=== PATIENT | female | born 1990 | race Two or more races ===

== ENCOUNTER 2024-05-29 11:06 | Emergency (ER) | payer MEDICAID, SELFPAY ==
[2024-05-29 11:15] VITALS: BP 126/64; PULSE 88; RESP 19; TEMP 37.1; O2SAT 100; BMI 26.2
--- NOTE | 2024-05-29 11:19 | XR_ITS ---
Examination: Complete OB ultrasound, less than 14 weeks, transabdominal Date and time of exam: May 29, 2024 1155 hours INDICATIONS: Lower pelvic pain cramping and vaginal bleeding onset today Technique: Obstetrical ultrasound images less than 14 weeks performed via transabdominal imaging Findings: A normal shaped single intrauterine gestation is present in the uterus. pole 5.3 cm corresponds to 11 week 6 day gestational age Cardiac motion 152 BPM Left lateral adjacent subchorionic hemorrhage 19 x 6 x 19 mm Ultrasonographic survey of visible structures unremarkable. Amniotic fluid volume appears appropriate for this estimated gestational age. Right ovary 2.9 x 2.9 x 3.0 cm arterial flow 17 mm follicular cyst Left ovary 2.7 x 1.8 x 2.9 cm arterial flow IMPRESSION: Viable intrauterine gestation 11 weeks 6 days Given the subchorionic hemorrhage, consider short-term follow-up pelvic sonography.
--- NOTE | 2024-05-29 11:24 | PD.EDADULT ---
ED General RME/HPI General Chief complaint: Vaginal Bleeding Stated complaint: VAGINAL BLEEDING AT WORK; 13WKS PREG Time Seen by Provider: 05/29/24 11:11 Arrival date/time: 05/29/24 11:06 CC: Vaginal bleeding, low center abdominal cramping HPI this is a G6, P2 with 13-week 1 day followed by [facility] with the onset of vaginal bleeding this morning. Related Data Previous Rx's ?Medication ?Instructions ?Recorded ferrous sulfate 325 mg (65 mg 325 mg PO QDAY 90 days #90 tabs 10/24/23 iron) tablet,delayed release Allergies Allergy/AdvReac Type Severity Reaction Status Date / Time fructose Allergy Severe GI UPSET Verified 05/29/24 11:08 lactose Allergy Severe GI UPSET Verified 05/29/24 11:08 trazodone Allergy Severe TROUBLE Verified 05/29/24 11:08 BREATHING bupropion AdvReac Severe HALLUCINATI Verified 05/29/24 11:08 NG [place] And Derivatives AdvReac Severe SEVERE Verified 05/29/24 11:08 ABDOMINAL PAIN POTASSIUM GLUCONATE AdvReac Severe SEVERE Uncoded 05/29/24 11:08 ABDOMINAL PAIN Meat AdvReac Intermediate GAS Uncoded 05/29/24 11:08 Review of Systems Review of Systems Narrative Review of Systems: GEN: No fever, no chills, no weight loss EYES: No discharge, no visual changes, no pain HEENT: No ear pain, no congestion, no sore throat PULM: No shortness of breath, no cough, no congestion CV: No chest pain, no dyspnea on exertion, no palpitations GI: No nausea, no vomiting, no diarrhea, no pain, no constipation : No frequency, no urgency, no dysuria Reproductive: Vaginal bleeding MUSC/SKEL: No joint pain, no back pain SKIN: No rash PSYCH: No hallucinations, no depression HEME/LYMPH: No easy bleeding or bruising tendencies NEURO: No weakness, no headache Past Medical History Past Medical History NEUROLOGIC: Positive Neurological Disorders and Seizures (13 years ago) CARDIAC: Negative Cardiac Disorders or Congestive Heart Failure RESPIRATORY: Positive Asthma and Pneumonia (in childhood); Negative Chronic Obstructive Pulmonary Disease (COPD) GASTROINTESTINAL: Positive Gastrointestinal Disorders and Gastroesophageal Reflux Disease GENITOURINARY: Negative Genitourinary Disorders or Renal Disease REPRODUCTIVE: Positive Gonorrhea (Treated 2020), Previous Pregnancies (x5 previous pregnancies) and Syphilis (Treated 2020); Negative Genital Herpes or Pelvic Inflammatory Disease MUSCULOSKELETAL: Negative Musculoskeletal Disorders ENDOCRINE: Negative Endocrine Disorders, Diabetes Mellitus Type 1 or Diabetes Mellitus Type 2 HEMATOLOGIC: Positive Anemia; Negative Blood Disorders or Sickle Cell Disease PSYCHO/SOCIAL: Positive Recreational Drug Use, Bipolar Disorder, Depression, Anxiety and Post Traumatic Stress Disorder; Negative Schizophrenia, Depression or Eating Disorder OTHER HISTORY: Positive Hospitalization and Cancer (Gastrointestinal Cancer in 2002 in Remission); Negative Autoimmune Disease, Blood Transfusions, Blood Transfusion Reaction or Anesthesia Reactions Family History FAMILY HISTORY: Positive Family Cancer (BOTH FATHER AND MOTHER SIDE); Negative Family Psychiatric Problems, Family Respiratory Disorders, Family Cardiac Disorders (MOTHER HAS A STENT IN HER HEART), Family Gastrointestinal Problems (MOTHER TYPE 2 DIABETIC, GRANDMOTHER DIABETIC), Family Surgery or Family Anesthesia Reaction Social History SMOKING STATUS: Never smoker SECOND HAND EXPOSURE: No SUBSTANCE USE: methamphetamine ED Exam Narrative Physical exam: [General: Anxious but not in any acute distress Head normocephalic HEENT: Within acceptable limits Neck is supple nontender Chest equal chest rise nontender to palpation Respiratory: Clear to auscultation no wheezes crackles or rubs CV: Rate rhythm is regular no murmurs rubs or clicks Abdomen is distended secondary to body habitus soft nontender no masses positive bowel sounds all 4 quadrants Back: No CVA tenderness no spinous process tenderness from cervical spine thoracic and lumbar spine Skin: Intact no petechiae rash induration ulceration or crepitus Extremities: Moving all extremity against resistance cap refill less than 2 seconds neurosensory intact Neuro: Awake alert oriented x3 Glascow coma 15 no focal deficits] Course Quality Measures none Orders Category Date Time Status US OB <= 14 weeks fetus Stat Exams 05/29/24 11:19 Completed ABO/RH Type Stat Lab 05/29/24 11:29 Completed Beta HCG,Quantitative Stat Lab 05/29/24 11:29 Received CBC Stat Lab 05/29/24 11:29 Completed Urinalysis Stat Lab 05/29/24 11:20 Ordered Vital Signs Vital signs: Vital Signs Temperature 98.7 F 05/29/24 11:15 Pulse Rate 88 05/29/24 11:15 Respiratory Rate 19 05/29/24 11:15 Blood Pressure 126/64 05/29/24 11:15 Pulse Oximetry (%) 100 05/29/24 11:15 Oxygen Delivery Method Room Air 05/29/24 11:15 [facility] Patient data External records reviewed:: [facility] previous records Clinical information provided by:: patient Social determinants that could affect healthcare access:: none Patient has the following chronic illnesses:: None How is presenting disease/condition affected by chronic disease/condition?: uneffected by Evaluation data The following diagnostics were reviewed and interpreted by me:: lab results and radiology exam(s) Lab and/or radiology exams considered but not ordered:: Ultrasound shows a small subchorionic bleed otherwise a single viable IUP at 11 weeks 3 days CBC showed no acute leukocytosis anemia thrombocytopenia CMP shows no acute electrolyte imbalance renal Ramirez transaminitis or T. bili elevation ABO Rh is a positive Interpretation Summary: Patient's case discussed with Dr. Vann as this patient can follow-up in 1-2 takes for repeat ultrasound. Patient advised if there is significant worsening in bleeding or large amount of clots to return the emergency room for reevaluation. Medications Medications considered but not ordered:: None Medication administrations:: None Consultations Consultation(s) initiated? (list below): No Diagnosis Differential Diagnosis ED Complaint MDM: SAB ectopic miscarriage Most likely diagnosis given after review of the tests above:: Subchorionic bleed single IUP Admission Indicated Admission indicated?: not indicated Explain why admission is indicated or not indicated:: Stable for outpatient follow-up Admission Request Was there a request for admission?: No Disposition Plan Disposition Plan: Discharge Discharge Attestation Discharge Attestation: The patient and all family members were given an opportunity to ask questions and understood the discharge instructions. Discharge instructions specifically effects, indications for sooner follow up or return to the emergency department, and the expected course of current diagnosis. Patient condition: Stable Medical Decision Making Differential Diagnosis Differential Diagnosis: SAB ectopic miscarriage Lab Data 05/29/24 11:29 Labs: Lab Results 05/29/24 Range/Units 11:29 WBC 10.0 (3.6-11.0) Thou/mm3 RBC 4.88 (4.00-5.20) Miln/mm3 Hgb 14.0 (12.0-16.0) g/dL Hct 40.6 (36.0-46.0) % MCV 83 (80-100) fL MCH 28.7 (25.0-35.0) pg MCHC 34.5 (31.0-37.0) g/dl RDW Std Deviation 38.9 (36.4-46.3) fL Plt Count 235 (140-440) Thou/mm3 Neut % (Auto) 69 (37-80) % Lymph % (Auto) 22 (10-50) % [place] % (Auto) 5 (0-12) % Eos % (Auto) 3 (0-10) % Baso % (Auto) 0 (0-2.5) % Neut # (Auto) 6.9 (1.8-7.7) Thou/mm3 Lymph # (Auto) 2.2 (1.0-4.8) Thou/mm3 [place] # (Auto) 0.5 (0.0-0.8) Thou/mm3 Eos # (Auto) 0.3 (0.0-0.5) Thou/mm3 Baso # (Auto) 0.0 (0.0-0.2) Thou/mm3 Immature Gran # (Auto) 0.03 H (0.00-0.00) Thou/mm3 Absolute Nucleated RBC 0.00 (0.00-0.00) Thou/mm3 Immature Gran % 0 (0-0) % Nucleated RBC % 0 (0) /100 WBC Blood Type A Positive Blood Bank Wristband ID Yes Discharge Plan Plan Patient Disposition: HOME (Self Care) Patient condition on transfer: Stable Prescriptions/Referrals Prescriptions/Med Rec: No Action ferrous sulfate 325 mg (65 mg iron) tablet,delayed release (DR/EC) 325 mg PO QDAY 90 Days Qty: 90 2RF Referrals: Charbel Cheema MD [Primary Care Provider] - In 1 week Problem List Clinical Impression: Complication affecting intrauterine , Subchorionic bleed Patient/Caregiver Discharge Instructions Other Activity Instructions:: Contacted [facility] OB to schedule an ultrasound in the next week or 2, if there is worsening of symptoms prior to that return the emergency room for reevaluation. Education Materials: Bleeding During Early Print Language: Sinhala Stand Alone Forms: Elaine Award Info., Patient Portal Info Letter, Work/School Release PA/LABORER [employer]OL[employer] Supervising Physician PA/LABORER [employer] Supervising Physician: Maxwell Wong ENP
[2024-05-29 11:40] LABS: Basophils % (Auto) 0 % (0-2.5); Eosinophils # (Auto) 0.3 Thou/mm3 (0.0-0.5); Eosinophils % (Auto) 3 % (0-10); Hematocrit 40.6 % (36.0-46.0); Immature Granulocytes % (Auto) 0 % (0-0); Immature Granulocytes Auto 0.03 Thou/mm3 (0.00-0.00); Lymphocytes # (Auto) 2.2 Thou/mm3 (1.0-4.8); Lymphocytes % (Auto) 22 % (10-50); Mean Corpuscular HGB Conc 34.5 g/dl (31.0-37.0); Mean Corpuscular Hemoglobin 28.7 pg (25.0-35.0); Mean Corpuscular Volume 83 fL (80-100); Monocytes # (Auto) 0.5 Thou/mm3 (0.0-0.8); Monocytes % (Auto) 5 % (0-12); Neutrophils # (Auto) 6.9 Thou/mm3 (1.8-7.7); Neutrophils % (Auto) 69 % (37-80); Nucleated Red Blood Cell % 0 /100 WBC (0); Platelet Count 235 Thou/mm3 (140-440); RDW Standard Deviation 38.9 fL (36.4-46.3); Red Blood Count 4.88 Miln/mm3 (4.00-5.20)
[2024-05-29 13:05] LABS: Beta HCG,Quantitative 53367 mIU/mL (<5.0)
[2024-05-29 13:25] LABS: Collection Type, Urine Clean Catch
[2024-05-29 13:32] LABS: Bilirubin,Urine Negative (Negative); Blood,Urine Negative (Negative); Clarity,Urine Clear (Clear/Hazy); Color,Urine Lt-Yellow (Lt Yel-Yel); Glucose, Urine Negative (Negative); Hyaline Casts,Urine < 1 /hpf (0-1); Ketones,Urine Negative (Negative); Leukocyte Esterase,Urine Negative (Negative); Nitrite,Urine Negative (Negative); Protein,Urine Negative (Neg - Trace); RBC,Urine 1 /hpf (0-3); Specific Gravity,Urine 1.018 (1.001-1.035); Squamous Epithelial Cell,Urine 1 /hpf (0-5); Urobilinogen,Urine Negative mg/dL (0.0-1.0); WBC,Urine 2 /hpf (0-5)
== END 2024-05-29 13:32 | disposition home or self-care (01) ==
PROVIDERS: Registered Nurse General Practice; Emergency Provider Emergency Medicine; PCP Family Medicine
DX: O20.8 Other hemorrhage in early pregnancy (principal); Z3A.11 11 weeks gestation of pregnancy
CPT/HCPCS: 36415; 76801; 81001; 84702; 85025; 86900; 86901; 99284

== ENCOUNTER 2024-10-17 14:25 | Observation (INO) | payer MEDICAID, SELFPAY ==
[2024-10-17 14:39] VITALS: BP 95/57; PULSE 107
[2024-10-17 15:02] VITALS: BP 95/57; PULSE 104; RESP 16; RESP 98; TEMP 36.6
[2024-10-17 15:03] VITALS: PULSE 108; O2SAT 97
[2024-10-17 15:04] LABS: Swb Mxed in Solvent 1 min? Yes
[2024-10-17 15:05] LABS: ROM Swab Mixed By: WORMR; Rupture of Fetal Membranes Negative (Negative)
[2024-10-17 15:08] VITALS: PULSE 108; O2SAT 98
[2024-10-17 15:12] LABS: ROM Kit Lot # 57807112
[2024-10-17 15:13] VITALS: PULSE 107; O2SAT 98
[2024-10-17 15:18] VITALS: PULSE 110; O2SAT 100
== END 2024-10-17 15:30 | disposition home or self-care (01) ==
PROVIDERS: Admitting Provider Student in an Organized Health Care Education/Training Program; Visit Provider Student in an Organized Health Care Education/Training Program
DX: Z34.83 Encounter for supervision of other normal pregnancy, third trimester (principal); Z3A.32 32 weeks gestation of pregnancy
CPT/HCPCS: 59899; 84112

== ENCOUNTER 2024-12-11 05:26 | Inpatient (IN) | payer MEDICAID, SELFPAY ==
[2024-12-11] VITALS (28 sets, daily range): BP systolic 0–129; BP diastolic 0–81; PULSE 79–110; RESP 12–20; TEMP 36.3–36.8; O2SAT 97–100; BMI 29.4
[2024-12-11] MEDS: RINGERS LACTATED 1000 ML 1,000 ML 100 ML IV (06:00)
[2024-12-11 06:41] LABS: Collection Type, Urine Clean Catch
[2024-12-11 06:45] LABS: Basophils # (Auto) 0.1 Thou/mm3 (0.0-0.2); Basophils % (Auto) 1 % (0-2.5); Eosinophils # (Auto) 0.3 Thou/mm3 (0.0-0.5); Eosinophils % (Auto) 3 % (0-10); Hematocrit 34.8 % (36.0-46.0); Hemoglobin 12.8 g/dL (12.0-16.0); Immature Granulocytes % (Auto) 2 % (0-0); Immature Granulocytes Auto 0.24 Thou/mm3 (0.00-0.00); Lymphocytes # (Auto) 2.9 Thou/mm3 (1.0-4.8); Lymphocytes % (Auto) 27 % (10-50); Mean Corpuscular HGB Conc 36.8 g/dl (31.0-37.0); Mean Corpuscular Hemoglobin 30.7 pg (25.0-35.0); Mean Corpuscular Volume 84 fL (80-100); Monocytes # (Auto) 0.9 Thou/mm3 (0.0-0.8); Monocytes % (Auto) 8 % (0-12); Neutrophils # (Auto) 6.4 Thou/mm3 (1.8-7.7); Neutrophils % (Auto) 60 % (37-80); Nucleated Red Blood Cell % 0 /100 WBC (0); Platelet Count 193 Thou/mm3 (140-440); Red Blood Count 4.17 Miln/mm3 (4.00-5.20); White Blood Count 10.7 Thou/mm3 (3.6-11.0)
[2024-12-11 06:51] LABS: Bilirubin,Urine Negative (Negative); Blood,Urine Negative (Negative); Budding Yeast,Urine Present; Clarity,Urine Turbid (Clear/Hazy); Color,Urine Lt-Yellow (Lt Yel-Yel); Glucose, Urine Negative (Negative); Ketones,Urine Trace (Negative); Leukocyte Esterase,Urine Negative (Negative); Nitrite,Urine Negative (Negative); PH,Urine 6.5 (5.0-7.0); Protein,Urine Negative (Neg - Trace); RBC,Urine 5 /hpf (0-3); Specific Gravity,Urine 1.021 (1.001-1.035); Squamous Epithelial Cell,Urine 3 /hpf (0-5); Urobilinogen,Urine Negative mg/dL (0.0-1.0); WBC,Urine 2 /hpf (0-5)
[2024-12-11 07:07] LABS: Alanine Aminotransferase 29 U/L (10-49); Albumin, Serum 3.9 gm/dL (3.5-5.0); Albumin/Globulin Ratio 1.8 (1.2-2.2); Alkaline Phosphatase 720 U/L (46-116); Anion Gap 11 (7-16); BUN/Creatinine Ratio 17 Ratio (12-20); Bilirubin,Total 0.4 mg/dL (0.3-1.2); Blood Urea Nitrogen 12 mg/dL (9-23); Calcium 9.9 mg/dL (8.3-10.6); Carbon Dioxide 18.8 mMol/L (20.0-31.0); Chloride 109 mMol/L (98-107); Creatinine (Component) 0.7 mg/dL (0.6-1.3); Estimated Creatinine Clearance 122.7 mL/min (>60); Globulin 2.2 gm/dL (2.3-3.5); Glucose 83 mg/dL (74-106); Osmolality,Calculated 276 (275-295); Potassium 3.7 mMol/L (3.4-5.1); Sodium 139 mMol/L (136-145); Total Protein 6.1 gm/dL (5.7-8.2); Uric Acid 5.6 mg/dL (3.1-7.8); eGFR > 60 See Note
[2024-12-11] MEDS: ceFAZolin/D5W 2 GM IV 2 GM/100 ML BAG IV (07:16)
[2024-12-11] MEDS: CITRIC ACID/SODIUM CITR 15 ML UDC (BICITRA) 30 ML PO (07:16)
[2024-12-11] MEDS: FAMOTIDINE INJ 10 MG/ML VIAL 2 ML 20 MG IV (07:17)
[2024-12-11 07:25] LABS: Syphilis Reactive (Nonreactive)
[2024-12-11 07:26] LABS: MHATP/TP-PA* See Sep Rpt
[2024-12-11 07:42] LABS: Fibrinogen 441 mg/dL (175-375); Prothrombin Time 10.6 Seconds (9.0-12.2)
--- NOTE | 2024-12-11 07:43 | PD.LDHP ---
Documentation for date of: 12/11/24 OB Labor/Induct. HPI History of Present Illness : 5 Date of last menstrual period: 03/12/24 TAYLOR: 12/12/24 Gestational age based on last menstrual period: 39 History of present illness: 34-year-old 6 para 2-0-3-2 at 39 weeks and 6 days admitted for repeat low-transverse . Patient has a history of spontaneous x 3 and one of them had blood transfusion. This has been complicated by positive antibody status anti E and anti-C, however unity testing has been done and negative. Patient also has a history of gonorrhea and syphilis in 2020 and received treatment. Current intake labs show serofast status. Patient had an abnormal 1 hour GTT however was noncompliant or have the 3-hour done. However the HbA1c was 5. Previous was done at 40 weeks and patient had a vaginal delivery before that. Patient complained of severe headache which was not responding to Tylenol at home. Vitals are stable however preeclampsia lab were done with normal History of Present Dating criteria: LMP confirmed by 1st trimester US Abnormal ultrasound findings: Anatomy scan within normal limits Placenta anterior no previa Labs Labs: Negative: RPR, HIV, Chlamydia and Gonorrhea and Unknown: Hepatitis B, Rubella Titre, Herpes Type 1, Herpes Type 2 and Covid-19 Meds Home Medications and Allergies Allergies Allergy/AdvReac Type Severity Reaction Status Date / Time fructose Allergy Severe GI UPSET Verified 10/17/24 14:58 lactose Allergy Severe GI UPSET Verified 10/17/24 14:58 lorazepam (From Ativan) Allergy Severe Hallucinati Verified 10/17/24 14:58 ng bupropion AdvReac Severe HALLUCINATI Verified 10/17/24 14:58 NG POTASSIUM GLUCONATE AdvReac Severe SEVERE Uncoded 10/17/24 14:58 ABDOMINAL PAIN OB Exam Physical Exam Vital signs: Temp Pulse Resp BP Pulse Ox O2 Del Method 97.7 F 95 18 0/0 L 100 Room Air 12/11/24 05:43 12/11/24 05:43 12/11/24 05:43 12/11/24 06:04 12/11/24 07:06 12/11/24 05:43 Constitutional Constitutional: no acute distress Routine HEENT Exam Head: Present normocephalic and atraumatic Eye: Present EOMI and PERRL ENT: Present mucous membranes moist Routine Neck Exam Neck: Present supple and trachea midline Routine Cardiovascular Exam Cardiovascular: Present RRR Routine Abdominal Exam Abdominal: Present soft and normoactive bowel sounds Detailed Labor and Delivery Exam Dilation (cm): Closed Routine Extremities Exam Extremities: Present full ROM Routine Skin Exam Skin: Present intact, dry and warm Routine Neurological Exam Neurological: Present alert, oriented X3 and CN II-XII intact Routine Psychiatric Exam Psychiatric: Present normal affect and normal thought process OB Results Labs 12/11/24 06:16 12/11/24 06:16 Labs: Short CBC 12/11/24 Range/Units 06:16 WBC 10.7 (3.6-11.0) Thou/mm3 Hgb 12.8 (12.0-16.0) g/dL Hct 34.8 L (36.0-46.0) % Plt Count 193 (140-440) Thou/mm3 BMP 12/11/24 06:16 Sodium 139 Potassium 3.7 Chloride 109 H Carbon Dioxide 18.8 L BUN 12 Creatinine 0.7 Glucose 83 Calcium 9.9 Liver Function 12/11/24 Range/Units 06:16 Total Bilirubin 0.4 (0.3-1.2) mg/dL ALT 29 (10-49) U/L Alkaline Phosphatase 720 H (46-116) U/L Albumin 3.9 (3.5-5.0) gm/dL Urine 12/11/24 Range/Units 06:00 Urine Color Lt-Yellow (Lt Yel-Yel) Urine Clarity Turbid A (Clear/Hazy) Urine pH 6.5 (5.0-7.0) Ur Specific [place] 1.021 (1.001-1.035) Urine Protein Negative (Neg - Trace) Urine Glucose (UA) Negative (Negative) Impressions Impression: 34-year-old 6 para 2-0-3-2 at 39 weeks and 6 days dated by first trimester ultrasound is admitted for repeat low-transverse Hemoglobin 12.3 Positive antibody status complicating however unity testing is negative History of syphilis treated in 2020, serofast status History of 3 spontaneous blood transfusion in 1 Anatomy scan within normal limits, anterior placenta GTT abnormal 1 hour noncompliant 3-hour OB Assessment & Plan Additional Plan Additional Plan Comment: Boarded for repeat low-transverse Antibiotic prophylaxis DVT prophylaxis
[2024-12-11] MEDS: ONDANSETRON INJ 2 MG/ML INJ 2 ML 4 MG IVP (09:37)
[2024-12-11] MEDS: KETOROLAC INJ 30 MG/ML VIAL IVP (09:59)
[2024-12-11] MEDS: OXYTOCIN in NS 20 units 20 UNIT/1,000 ML BAG 125 UNIT IV ×2 (11:01→19:45)
--- NOTE | 2024-12-11 12:07 | PC.LAC ---
mom had asked for nipple shield on my first visit with her. she stated that she had used it with her first baby for 5 months. mom stated that she would like to have it for a back up in case she has difficulty with the latch. issued a 24 mm nipple shield to mom
[2024-12-11 13:39] LABS: Basophils # (Auto) 0.1 Thou/mm3 (0.0-0.2); Basophils % (Auto) 0 % (0-2.5); Eosinophils # (Auto) 0.1 Thou/mm3 (0.0-0.5); Eosinophils % (Auto) 1 % (0-10); Hematocrit 32.2 % (36.0-46.0); Hemoglobin 11.8 g/dL (12.0-16.0); Immature Granulocytes % (Auto) 1 % (0-0); Immature Granulocytes Auto 0.15 Thou/mm3 (0.00-0.00); Lymphocytes # (Auto) 1.8 Thou/mm3 (1.0-4.8); Lymphocytes % (Auto) 10 % (10-50); Mean Corpuscular HGB Conc 36.6 g/dl (31.0-37.0); Mean Corpuscular Hemoglobin 30.7 pg (25.0-35.0); Mean Corpuscular Volume 84 fL (80-100); Monocytes # (Auto) 0.9 Thou/mm3 (0.0-0.8); Monocytes % (Auto) 5 % (0-12); Neutrophils % (Auto) 83 % (37-80); Nucleated Red Blood Cell % 0 /100 WBC (0); Platelet Count 183 Thou/mm3 (140-440); RDW Standard Deviation 43.9 fL (36.4-46.3); Red Blood Count 3.84 Miln/mm3 (4.00-5.20); White Blood Count 16.9 Thou/mm3 (3.6-11.0)
[2024-12-11] MEDS: DiphenhydrAMINE 25 MG CAPSULE PO (16:36)
--- NOTE | 2024-12-11 17:10 | ESOP_ITS ---
Operative Note - EMBEDDED FIRMWARE ENGINEER Procedure Date of procedure: 12/11/24 Procedure Performed: repeat low transverse Csection Indication: previous Csection x1 Pre-Op diagnosis: previous Csection x1 Post-Op diagnosis: same Anesthesia type: Spinal Procedure description: Informed consent was obtained and the patient was taken to the operating room.? Identity was confirmed by double identifiers and she was placed on the operating table.The abdomen and perineum were prepped in the usual sterile fashion and a Nielson catheter was placed to continuous drainage.? Sterile drapes were applied.??A Pfannenstiel skin incision was made with a scalpel and carried to the subcutaneous fat up to the rectus fascia.? The rectus fascia was incised on either side of the midline and the incisions were extended bilaterally.? The fascia was gently dissected off the ventral surface of the rectus muscle both superiorly and inferiorly. extensive adhesiolysis was done between musle , peritoneum. bladder flap carefully created, then hysterotomy incision made and extended bluntly with finger. placenta edge was Rupture of membranes revealed clear fluid. The baby was found vertex presentation and was delivered via vertex. Nuchal cord x 1, seen the umbilical cord , was doubly clamped, divided and the infant was handed over to the waiting team. The placenta delivered by controlled cord traction . The interior of the uterus was now thorougly cleaned of all blood and debris and membranes.?The? hysterotomy was closed using 0 vicryl suture in double layers. Once the repair was completed the hysterotomy was inspected, was noted to be adequately hemostatic. Then the rectus fascia was repaired using Vicryl 0 in a running fashion.? The subcutaneous layer was now, approximated with 3-0 vicryl in double layers.? All bleeding points were cauterized using the Bovie.?The skin was closed using 4-0 Monocryl in a subcuticular fashion.? The skin was cleaned and a sterile dressing was applied. The patient was now undraped, the abdomen and back were thoroughly cleaned and she was now transferred to the recovery room in a stable Estimated blood loss (ml): 400 Surgical staff Operation Date: 12/11/24 07:45 Case Staff [employer]: Cliff Hess RNvisual merchandise manager: Christopher Singh Diagnosis Problem List Completed Was Problem List Reviewed/Reconciled?: Yes
--- NOTE | 2024-12-11 17:18 | OBDSUM_ITS ---
Data (Soriano) Data : 6 Delivery Data (Soriano) Labor Data ROM date: 12/11/24 ROM time: 08:02 Amniotic membrane rupture type: Artificial Amniotic fluid description: Clear Delivery Data [place] delivery date: 12/11/24 delivery time: 08:03 Gestational age (weeks): 39 Gestational age (days): 6 Placenta delivery date: 12/11/24 Placenta delivery time: 08:03 Delivered by: Silvia Cabrera Delivery nurse: Zay Sterling RN [place] nurse: Cirilo Jennings RN Receiving Distribution Station Operator at delivery: No Support person(s) at delivery: FOB Delivery Method Delivery method: Low Transverse Presentation: Vertex Anesthesia Type Anesthesia Type: Spinal Anesthesia type: Spinal Placenta Placenta delivery description: Manual Removal Cord blood sent to lab: Yes cord blood collection: Cord Blood Type Episiotomy Episiotomy description: None EBL Estimated blood loss (ml): 300 Umbilical Cord cord description: 3 Vessels Data (Soriano) Data [place]'s gender: Female Identification band number: [id number] weight (gms): 3690 g Weight (pounds): 8 lbs and 2.2 ozs length: 20 cm 1 minute: 9 5 minutes: 9 10 minutes: 10
[2024-12-11] MEDS: ACETAMINOPHEN IVPB 1,000 MG/100 ML VIAL 250 MG IV (19:45)
[2024-12-12 00:26] VITALS: BP 90/58; PULSE 86; RESP 18; TEMP 36.8; O2SAT 97
[2024-12-12 04:30] VITALS: BP 94/63; PULSE 91; RESP 18; TEMP 37.2; O2SAT 98
[2024-12-12] MEDS: ACETAMINOPHEN IVPB 1,000 MG/100 ML VIAL 250 MG IV (04:47)
[2024-12-12] MEDS: RINGERS LACTATED 1000 ML 1,000 ML 100 ML IV (04:47)
[2024-12-12 06:43] LABS: Amphetamine/Metham Scrn,Ur OB Negative (Negative); Benzoylecgonine Screen, Ur OB Negative (Negative); Opiate Screen,Urine OB Negative (Negative); THC Screen,Urine OB Negative (Negative)
[2024-12-12 07:35] VITALS: BP 104/66; PULSE 88; RESP 16; TEMP 36.6; O2SAT 98
--- NOTE | 2024-12-12 08:45 | PC.LAC ---
Mom stated went well overnight, stated that she did end up having to use the nipple shield and that baby tolerated this well. Mom did state that she knew how to use one as she used it with first child till they were 5 months old. Mom stated that she did not have any pain when baby latched and that she heard baby swallowing.
[2024-12-12] MEDS: HYDROcodone/APAP 5/325 TABLET 2 TAB PO ×2 (09:49→17:55)
--- NOTE | 2024-12-12 10:12 | ESPR_ITS ---
Subjective Subjective Interval history: Patient is doing well patient denies any nausea vomiting, fever patient denies any pain and has not been ambulating, passing gas, voiding without any problems Exam Vital Signs Temp Pulse Resp BP Pulse Ox O2 Del Method 98.9 F 91 18 94/63 98 Room Air 12/12/24 04:30 12/12/24 04:30 12/12/24 04:30 12/12/24 04:30 12/12/24 04:30 12/12/24 04:30 Constitutional Constitutional: no acute distress Routine HEENT Exam Head: Present normocephalic and atraumatic Eye: Present EOMI and PERRL ENT: Present mucous membranes moist Routine Neck Exam Neck: Present supple and trachea midline Routine Respiratory Exam Respiratory: Present chest non-tender, lungs clear, normal breath sounds and no resp distress Routine Cardiovascular Exam Cardiovascular: Present RRR Routine Abdominal Exam Abdominal: Present soft and normoactive bowel sounds Routine Extremities Exam Extremities: Present full ROM Routine Skin Exam Skin: Present intact, dry and warm Routine Neurological Exam Neurological: Present alert, oriented X3 and CN II-XII intact Routine Psychiatric Exam Psychiatric: Present normal affect and normal thought process Objective Labs 12/11/24 12:49 12/11/24 06:16 Labs: Laboratory Results - last 24 hr 12/11/24 12/11/24 12/11/24 06:16 07:07 07:07 WBC RBC Hgb Hct MCV MCH MCHC RDW Std Deviation Plt Count Neut % (Auto) Lymph % (Auto) [place] % (Auto) Eos % (Auto) Baso % (Auto) Neut # (Auto) Lymph # (Auto) [place] # (Auto) Eos # (Auto) Baso # (Auto) Immature Gran # (Auto) Absolute Nucleated RBC Immature Gran % Nucleated RBC % Urine Opiates Screen U Amphetamin/Meth Scrn U Cocaine Metab Screen U Marijuana (THC) Screen T.pallidum Ab (MHA) See Sep Rpt Blood Type A Positive Antibody Screen POSITIVE Antibody Identification Anti-E Anti-K Blood Bank Wristband ID 12/11/24 12/11/24 12/12/24 07:07 12:49 04:45 WBC 16.9 H D RBC 3.84 L Hgb 11.8 L Hct 32.2 L MCV 84 MCH 30.7 MCHC 36.6 RDW Std Deviation 43.9 Plt Count 183 Neut % (Auto) 83 H Lymph % (Auto) 10 [place] % (Auto) 5 Eos % (Auto) 1 Baso % (Auto) 0 Neut # (Auto) 14.0 H Lymph # (Auto) 1.8 [place] # (Auto) 0.9 H Eos # (Auto) 0.1 Baso # (Auto) 0.1 Immature Gran # (Auto) 0.15 H Absolute Nucleated RBC 0.00 Immature Gran % 1 H Nucleated RBC % 0 Urine Opiates Screen Negative U Amphetamin/Meth Scrn Negative U Cocaine Metab Screen Negative U Marijuana (THC) Screen Negative T.pallidum Ab (MHA) Blood Type Antibody Screen Antibody Identification Anti-c Blood Bank Wristband ID Yes Assessment & Plan Assessment Comment Assessment comment: 34-year-old para 2 status post repeat low-transverse . Postop day 1 Vital signs stable Meeting all postop milestones Plan Comment Plan Comment: Continue postop care Anticipate discharge tomorrow Time Spent With Patient Time: Total time spent is greater than 50% in coordination of care (as documented) at patient's floor/unit and/or counseling patient:
--- NOTE | 2024-12-12 13:49 | PC.SS ---
SS conducted bedside contact with the patient to address nursing referral indicating patient had history of anxiety and bipolar disorder. ?SS introduced self and role.? SS asked for permission to speak in front of family member. Patient agreed. SS discussed with patient basis of referral.? Patient denied having any current feelings of anxiety, depression or bipolar disorder. Patient states she is in 2020 she had history of substance abuse with meth. During this time, she experience symptoms of anxiety and depression. She also states she thought she had bipolar disorder but was never fully diagnosed. She contributes this to her drug use. Patient has been clean and sober since 2020. ?Patient, currently, has no impairments. Patient has no current thoughts of harming herself or others.? No other history of documented mental health. Maverick ADORNO, resides in the home. This is patient?s 3rd child. Other children?s? ages are 14 years old and 13 months. , baby girl, was born today via . care was completed with Dr. Cabrera.? Patient was consistent with . Patient plans on breast feeding and bottle feeding. Patient is aligned with [facility]. Patient does not possess [place] assistance or Food stamps. Patient denies history of domestic violence. Patient verbalized she did have CPS involvement in the past but it has been closed. Patient has all resources to include: car seat, infant clothing and infant supplies.? pharmacy services director provided resources to include:? Parent[employer], Warm Line and community numbers. SS discussed in further detail emotional support and answered all questions appropriately. Patient verbalized she has support from her and his family. ?No further intervention required at this time, manager social media will be available to address any further concerns. SS updated bedside nurse.
[2024-12-12 15:45] VITALS: BP 102/69; PULSE 94; RESP 17; TEMP 36.5; O2SAT 97
[2024-12-12] MEDS: IBUPROFEN TAB 400 MG TABLET 800 MG PO ×2 (15:57→23:54)
[2024-12-12 19:30] VITALS: BP 119/80; PULSE 79; RESP 16; TEMP 36.6; O2SAT 98
[2024-12-12] MEDS: Milk Of Magnesia Susp 30 ML UDC PO (23:55)
[2024-12-13] MEDS: HYDROcodone/APAP 5/325 TABLET 2 TAB PO ×3 (04:10→17:17)
[2024-12-13 08:30] VITALS: BP 110/75; PULSE 80; RESP 17; TEMP 36.7; O2SAT 98
[2024-12-13 12:00] VITALS: BP 115/80; PULSE 85; RESP 18; TEMP 36.4; O2SAT 98
--- NOTE | 2024-12-13 12:25 | PD.LDDS ---
DS: Providers Provider Date of admission: 12/11/24 05:26 Primary care physician: Janet Vasquez CNM Admitting Provider: Silvia Cabrera MD Attending Provider on Admission: Silvia Cabrera MD Consults: 12/11/24 07:42 Referral Routine Comment: Attending Provider on DC: Silvia Cabrera MD Discharging Provider: Silvia Cabrera MD DS: Diagnosis Problem List Completed Was Problem List Reviewed/Reconciled?: Yes Summary/Hosp Course Brief History: 34-year-old 6 para 3, s/p RLTCS @ at 39 weeks and 6 days has been doing well. met all PO milestone s including ambulation , passing gas , tolerating diet Peripartum Data Delivery Method: Low Transverse Episiotomy Description: None Procedures: Procedures Operation Date: 12/11/24 07:45 Actual Procedure Side Surgeon p in OB Silvia Cabrera MD Status at Discharge Cognitive/behavioral status at discharge: stable Time Spent with Patient Time attestation: Total time spent providing and/or coordinating discharge services: Exam Vital Signs Temp Pulse Resp BP Pulse Ox O2 Del Method 97.8 F 79 16 119/80 98 Room Air 12/12/24 19:30 12/12/24 19:30 12/12/24 19:30 12/12/24 19:30 12/12/24 19:30 12/12/24 19:30 Constitutional Constitutional: no acute distress Routine HEENT Exam Head: Present normocephalic and atraumatic Eye: Present EOMI and PERRL ENT: Present mucous membranes moist Routine Neck Exam Neck: Present supple and trachea midline Routine Respiratory Exam Respiratory: Present chest non-tender, lungs clear, normal breath sounds and no resp distress Routine Cardiovascular Exam Cardiovascular: Present RRR Routine Abdominal Exam Abdominal: Present soft and normoactive bowel sounds Routine Extremities Exam Extremities: Present full ROM Routine Skin Exam Skin: Present intact, dry and warm Routine Neurological Exam Neurological: Present alert, oriented X3 and CN II-XII intact Routine Psychiatric Exam Psychiatric: Present normal affect and normal thought process Discharge Plan Plan Patient Disposition: HOME (Self Care) Prescriptions/Referrals Prescriptions/Med Rec: New acetaminophen-codeine 300-60 mg tablet 1 tab PO Q8H PRN (Reason: pain) Qty: 10 0RF ibuprofen 800 mg tablet 800 mg PO TID Qty: 30 0RF No Action ferrous sulfate 325 mg (65 mg iron) tablet,delayed release (DR/EC) 325 mg PO QDAY 90 Days Qty: 90 2RF Referrals: Janet Vasquez CNM [Primary Care Provider] - Patient/Caregiver Discharge Instructions Education Materials: C Section Dc Print Language: Luxembourgish Stand Alone Forms: Elaine Award Info., Patient Portal Info Letter Discharge Order Discharge Orders: Discharge (Routine); Ordered 12/13/24 Ordered By: Silvia Cabrera Planned Discharge Date 12/13/24
[2024-12-13] MEDS: IBUPROFEN TAB 400 MG TABLET 800 MG PO (15:27)
[2024-12-13 16:10] VITALS: BP 112/78; PULSE 81; RESP 17; TEMP 36.6; O2SAT 98
== END 2024-12-13 17:40 | disposition home or self-care (01) | DRG 540 ==
LOC: S4SX 05:37 → S4NX 08:03
PROVIDERS: Admitting Provider Student in an Organized Health Care Education/Training Program; PCP Nurse Practitioner Women's Health; Visit Provider Student in an Organized Health Care Education/Training Program
PROC: 10D00Z1 Extraction of Products of Conception, Low, Open Approach (ICD-10-PCS; CPT 59514; principal; 2024-12-11 07:30)
DX: O34.211 Maternal care for low transverse scar from previous cesarean delivery (principal); Z37.0 Single live birth; Z3A.39 39 weeks gestation of pregnancy; O69.81X0 Labor and delivery complicated by cord around neck, without compression, not applicable or unspecified; O26.23 Pregnancy care for patient with recurrent pregnancy loss, third trimester; Z91.199 Patient's noncompliance with other medical treatment and regimen due to unspecified reason
CPT/HCPCS: 36415; 59409; 80053; 80307; 81001; 84550; 85025; 85384; 85610; 85730; 86780; 86850; 86870; 86900; 86901; 94762; A4314; A4649; J0131; J0689; J1885; J2250; J2274; J2371; J2405; J2590; J2704; J3490; J7120; A9270; J2270

== ENCOUNTER 2024-12-14 21:46 | Inpatient (IN) | payer MEDICAID, SELFPAY ==
[2024-12-14 21:50] VITALS: BMI 27.6
[2024-12-14 22:00] VITALS: BP 104/77; PULSE 136; RESP 20; TEMP 39.2; O2SAT 98
--- NOTE | 2024-12-14 22:01 | PC.NURSE ---
NOT A STROKE ALERT PER DR. COSBY.
--- NOTE | 2024-12-14 22:03 | XR_ITS ---
Examination: AP chest single view TECHNIQUE: AP portable upright chest single view Date and time: December 14, 2024 10:21 PM Comparison April 04, 2014 INDICATIONS: Chest pain and fever today FINDINGS: Normal heart size Lungs are clear. Osseous structures are intact IMPRESSION: No active disease
[2024-12-14 22:07] VITALS: BP 150/75; PULSE 121; RESP 15; O2SAT 99
--- NOTE | 2024-12-14 22:08 | XR_ITS ---
Examination: CT abdomen with intravenous contrast CT pelvis with intravenous contrast 2-D coronal reconstructions 2-D sagittal reconstructions Date and time of exam:December 15, [address] chest abdomen pelvis January 11, 2019 INDICATIONS: this week, sepsis alert, fever unknown origin. CTDI: vol (mGy) 14 DLP: (mGycm) 782 Technique: Multiple axial sections of the abdomen and pelvis have been obtained. 64 slice high-resolution scanner used. 3 mm axial sections have been obtained, post intravenous injection of 60 cc of Isovue 370 2-D sagittal, coronal reconstructions obtained. Low dose protocols were performed. One or more of the following dose reduction techniques were used; automated exposure control, adjustment of the mA and/or KV according to patient size, use of iterative reconstruction technique. Findings: No focal liver or splenic lesions No gallstones No pancreatic mass Minimal bilateral hydronephrosis Normal appendix No bowel obstruction enlarged uterus with thickened heterogeneous endometrium Thickening in the anterior pelvic wall 5.6 cm transverse dimension 1.1 cm AP dimension Minimal thickening of the anterior urinary bladder wall IMPRESSION: uterus with thickened heterogeneous endometrium, consider retained products of conception, recommend transvaginal pelvic sonography follow-up Complex echogenic fluid collection in the anterior pelvic wall 5.6 cm in transverse dimension 1.1 cm AP dimension, differential would include abscess, hematoma, advise follow-up
[2024-12-14 22:14] VITALS: PULSE 123
--- NOTE | 2024-12-14 22:23 | XR_ITS ---
Examination: CT brain head without contrast. 2-D sagittal coronal reconstructions Date and time of exam:December 15, 2024 0043 hours Comparison October 30, 2011 INDICATIONS: Onset headaches blurred vision today, history seizures CTDI: vol (mGy):48 DLP: (mGycm):948 Technique: Multiple CT axial sections of the brain have been obtained, 5 mm slice thickness. Contrast has not been administered. 2-D sagittal, coronal reconstructions have been obtained Low dose protocols were performed. One or more of the following dose reduction techniques were used; automated exposure control, adjustment of the mA and/or KV according to patient size, use of iterative reconstruction technique. Findings: No significant ventricular enlargement. Intra-axial or extra-axial hemorrhage density is not seen. No mass effect or midline shift Basal cisterns are not remarkable. Fourth ventricle is midline. Cranial vault intact. Impression: Negative for acute hemorrhage, mass effect or midline shift Advise clinical correlation and follow up accordingly
[2024-12-14 22:26] VITALS: TEMP 39.2
[2024-12-14 22:26] LABS: Lactate (Lactic Acid) 2.9 mMol/L (0.4-2.0)
[2024-12-14] MEDS: ACETAMINOPHEN 500 MG TABLET 1000 MG PO (22:26)
[2024-12-14] MEDS: PIPER/TAZO 3.375 GM PREMIX 3.375 GM/50 ML BAG IV (22:26)
[2024-12-14] MEDS: SODIUM CHLORIDE 0.9% 1000 ML 1,000 ML 999 ML IV (22:26)
[2024-12-14 22:41] LABS: Collection Type, Urine Clean Catch
[2024-12-14 22:44] LABS: INR 0.9 (0.9-1.3); Partial Thromboplastin Time 26.8 Seconds (22.0-36.0); Prothrombin Time 10.4 Seconds (9.0-12.2)
[2024-12-14 22:45] LABS: B-Type Natriuretic Peptide 71 pg/mL (0-100)
[2024-12-14 22:50] LABS: Bilirubin,Urine Negative (Negative); Blood,Urine 1+ (Negative); Clarity,Urine Clear (Clear/Hazy); Color,Urine Lt-Yellow (Lt Yel-Yel); Glucose, Urine Negative (Negative); Ketones,Urine Negative (Negative); Leukocyte Esterase,Urine Negative (Negative); Nitrite,Urine Negative (Negative); PH,Urine 6.5 (5.0-7.0); Protein,Urine Negative (Neg - Trace); RBC,Urine 5 /hpf (0-3); Specific Gravity,Urine 1.012 (1.001-1.035); Squamous Epithelial Cell,Urine 1 /hpf (0-5); Urobilinogen,Urine Negative mg/dL (0.0-1.0); WBC,Urine 1 /hpf (0-5)
[2024-12-14 22:52] LABS: Alanine Aminotransferase 25 U/L (10-49); Albumin, Serum 3.9 gm/dL (3.5-5.0); Albumin/Globulin Ratio 1.7 (1.2-2.2); Alkaline Phosphatase 384 U/L (46-116); Anion Gap 12 (7-16); Aspartate Amino Transferase 14 U/L (0-34); BUN/Creatinine Ratio 11 Ratio (12-20); Bilirubin,Total 0.3 mg/dL (0.3-1.2); Blood Urea Nitrogen 11 mg/dL (9-23); Calcium 10.2 mg/dL (8.3-10.6); Calcium (Corrected) 10.3 mg/dL (8.5-10.1); Carbon Dioxide 22.2 mMol/L (20.0-31.0); Chloride 106 mMol/L (98-107); Estimated Creatinine Clearance 89.3 mL/min (>60); Globulin 2.3 gm/dL (2.3-3.5); Glucose 123 mg/dL (74-106); Lipase 31 U/L (12-53); Magnesium 1.6 mg/dL (1.6-2.6); Osmolality,Calculated 279 (275-295); Potassium 3.6 mMol/L (3.4-5.1); Procalcitonin 0.08 ng/ml (0.0-0.49); Sodium 140 mMol/L (136-145); Total Protein 6.2 gm/dL (5.7-8.2); Troponin I < 0.002 ng/mL (0.0-0.045); eGFR > 60 See Note
[2024-12-14 23:00] VITALS: BP 116/71; PULSE 106; RESP 13; O2SAT 100
[2024-12-14 23:04] VITALS: TEMP 38.2
[2024-12-14 23:18] LABS: HCG Qualitative,Urine Positive
[2024-12-14 23:25] LABS: Basophils % (Auto) 0 % (0-2.5); Eosinophils # (Auto) 0.1 Thou/mm3 (0.0-0.5); Eosinophils % (Auto) 1 % (0-10); Hematocrit 35.4 % (36.0-46.0); Hemoglobin 12.6 g/dL (12.0-16.0); Immature Granulocytes % (Auto) 1 % (0-0); Immature Granulocytes Auto 0.08 Thou/mm3 (0.00-0.00); Lymphocytes # (Auto) 0.6 Thou/mm3 (1.0-4.8); Lymphocytes % (Auto) 8 % (10-50); Mean Corpuscular HGB Conc 35.6 g/dl (31.0-37.0); Mean Corpuscular Volume 87 fL (80-100); Monocytes # (Auto) 0.4 Thou/mm3 (0.0-0.8); Monocytes % (Auto) 5 % (0-12); Neutrophils # (Auto) 6.8 Thou/mm3 (1.8-7.7); Neutrophils % (Auto) 86 % (37-80); Nucleated Red Blood Cell % 0 /100 WBC (0); Platelet Count 195 Thou/mm3 (140-440); RDW Standard Deviation 46.2 fL (36.4-46.3); Red Blood Count 4.07 Miln/mm3 (4.00-5.20); White Blood Count 7.9 Thou/mm3 (3.6-11.0)
[2024-12-15] VITALS (22 sets, daily range): BP systolic 108–124; BP diastolic 67–78; PULSE 79–110; RESP 11–99; TEMP 36.1–38; O2SAT 95–100; BMI 27.6
[2024-12-15 01:23] LABS: Reflex Lactate? Y
[2024-12-15 01:41] LABS: Lactic Acid, 3 HR 1.4 mMol/L (0.4-2.0)
[2024-12-15] MEDS: HYDROcodone/APAP 5/325 TABLET 1 TAB PO (01:44)
--- NOTE | 2024-12-15 01:51 | EDNOTE_ITS ---
ED Fever RME/HPI General Chief Complaint: Fever Stated Complaint: FEVER, BLURRY VISION FOR AN HOUR Time Seen by Provider: 12/14/24 22:02 Arrival date/time: 12/14/24 21:46 RME / HPI RME / HPI Narrative: DR ALMARAZ MAIN ED EVALUATION: 34 y/o female with recent SHx of and Hx of recreational drug use presents to ED c/o fever, headache and eye pain. Patient feels unwell following her 3 days ago. Patient denies vomiting, or any other associated symptoms or aggravating factors. No modifying factors, no radiation, no migration. No pain reported overall. Related Data Previous Rx's ?Medication ?Instructions ?Recorded ferrous sulfate 325 mg (65 mg 325 mg PO QDAY 90 days # 90 tabs 10/24/23 iron) tablet,delayed release acetaminophen 300 mg-codeine 15 mg 1 tab PO Q12H PRN p ain #14 tabs 12/13/24 tablet acetaminophen 300 mg-codeine 60 mg 1 tab PO Q8H PRN pa in #10 tabs 12/13/24 tablet ibuprofen 800 mg tablet 800 mg PO Q8H PRN pain #30 t abs 12/13/24 ibuprofen 800 mg tablet 800 mg PO TID #30 tabs 12/13 Allergies Allergy/AdvReac Type Severity Reaction Status Date / Time fructose Allergy Severe GI UPSET Verified 12/14/24 21:50 lactose Allergy Severe GI UPSET Verified 12/14/24 21:50 lorazepam (From Ativan) Allergy Severe Hallucinati Verified 12/14/24 21:50 ng egg Allergy Cramping Verified 12/14/24 21:50 of the Muscles bupropion AdvReac Severe HALLUCINATI Verified 12/14/24 21:50 NG Review of Systems Review of Systems Systems Reviewed: All systems reviewed, normal except as documented Past Medical History Past Medical History NEUROLOGIC: Positive Neurological Disorders and Seizures RESPIRATORY: Positive Pneumonia GASTROINTESTINAL: Positive Gastrointestinal Disorders and Gastroesophageal Reflux Disease REPRODUCTIVE: Positive Gonorrhea, Previous Pregnancies and Syphilis HEMATOLOGIC: Positive Anemia PSYCHO/SOCIAL: Positive Recreational Drug Use, Bipolar Disorder, Depression, Anxiety and Post Traumatic Stress Disorder OTHER HISTORY: Positive Hospitalization, Blood Transfusions, Blood Transfusion Reaction (not able to do atigen testing about 5 years ago) and Cancer Family History FAMILY HISTORY: Positive Family Cancer Surgical History SURGICAL: Positive Section Social History SMOKING STATUS: Former smoker SUBSTANCE USE: methamphetamine Physical Exam Narrative Physical exam: GENERAL APPEARANCE: alert and oriented x 4, well-developed, well-nourished, no acute distress VITALS: All vitals were reviewed and the pulse ox is 97% on room air, which is normal according to my interpretation. HEENT: Normocephalic, atraumatic; pupils equal, round, reactive to light; EOMI; mucous membranes pink, moist; oropharynx clear NECK: Supple LUNGS: CTABL; no wheezes, no rales, no rhonchi HEART: Regular rate, regular rhythm; normal S1, S2; no murmurs ABDOMEN: non distended; normal BS; soft, no tenderness, no guarding, no rebound; no masses, no organomegaly, no hernia BACK: no CVA tenderness EXTREMITIES: atraumatic; no edema NEUROLOGIC: awake; alert and oriented x4; cranial nerves II-XII grossly intact; no focal sensory or motor deficits PSYCHIATRIC: appropriate mood and affect SKIN: increased warmth, dry, normal color; no rashes Course Course Course Narrative: CXR is ordered for determining the etiology of chest pain. Quality Measures none Orders Category Date Time Status Bedside COVID-19 Antigen Test NOW Care 12/15/24 00:26 Active COVID-19 Screening Questionnaire NOW Care 12/15/24 00:17 Active COVID-19 Screening Questionnaire NOW Care 12/15/24 05:[address] Screening NOW Care 12/14/24 22:08 Active Day Care Aide NOW Care 12/14/24 22:03 Active Decision to Admit X1 Care 12/15/24 05:20 Active EKG (ED ONLY) *Do not use* NOW Care 12/14/24 22:03 Completed Insert IV NOW Care 12/14/24 22:[address] abdomen pelvis w con Stat Exams 12/14/24 22:[address] head/brain wo con Stat Exams 12/14/24 22:23 Taken EKG (ED Only) Stat Exams 12/14/24 22:03 Ordered XR chest 1V portable Stat Exams 12/14/24 22:03 Completed B-Type Natriuretic Peptide Stat Lab 12/14/24 22:13 Completed Blood Culture (Lab) Stat Lab 12/14/24 22:16 Received CBC Stat Lab 12/14/24 22:13 Completed Comprehensive Metabolic Panel Stat Lab 12/14/24 22:13 Completed HCG Qualitative,Urine Stat Lab 12/14/24 22:36 Completed Lactate (Lactic Acid) Stat Lab 12/14/24 22:13 Completed Lactic Acid, 3 HR Stat Lab 12/15/24 01:32 Completed Lipase Stat Lab 12/14/24 22:13 Completed Magnesium Stat Lab 12/14/24 22:13 Completed Partial Thromboplastin Time Stat Lab 12/14/24 22:13 Completed Procalcitonin Stat Lab 12/14/24 22:13 Completed Prothrombin Time with INR Stat Lab 12/14/24 22:13 Completed Troponin I Stat Lab 12/14/24 22:13 Completed Urinalysis Stat Lab 12/14/24 22:36 Completed Urine Culture Stat Lab 12/14/24 22:36 Received Acetaminophen Tab [Tylenol ES Tab] Med 12/14/24 22:10 Discontinued 1,000 mg PO X1 ONE HYDROcodone*/APAP 5/325 [[place] 5/325] Med 12/15/24 01:38 Discontinued 1 tab PO X1 ONE Piper/Tazo 3.375 gm Premix [Zosyn] Med 12/14/24 22:07 Discontinued 3.375 gm in 50 ml IV X1 Piper/Tazo 3.375 gm Premix [Zosyn] Med 12/15/24 05:14 Active 3.375 gm in 50 ml IV X1 Sodium Chloride 0.9% 1000 ml [Ns] 1,000 ml Med 12/14/24 22:03 Discontinued IV 999 mls/hr Vital Signs Vital signs: Vital Signs Temperature 102.6 F H 12/14/24 22:00 Pulse Rate 136 H 12/14/24 22:00 Respiratory Rate 20 12/14/24 22:00 Blood Pressure 104/77 12/14/24 22:00 Pulse Oximetry (%) 98 12/14/24 22:00 Oxygen Delivery Method Room Air 12/14/24 22:00 Fever MDM Narrative MDM Narrative:: Scribe Attestation: I, Tasha Betancourt, am scribing for and in the presence of Dr. Almaraz. Provider Notation: Although this document has been carefully reviewed, there may still be some phonetic and other typographical errors.? These errors are purely grammatical due to imperfections in the software program and should not be construed in any way to? compromise the substance of the patient's medical care during this visit. Patient data External records reviewed:: [facility] previous records (Reviewed prior ED records from 05/29/24. Patient was seen for Complication affecting intrauterine .) Clinical information provided by:: patient Social determinants that could affect healthcare access:: substance use (Methamphetamine) Patient has the following chronic illnesses:: Seizures, Gastroesophageal Reflux Disease, Gonorrhea, Syphilis, Anemia, Recreational Drug Use, Bipolar Disorder, Depression, Anxiety and Post Traumatic Stress Disorder How is presenting disease/condition affected by chronic disease/condition?: exacerbated by Evaluation data The following diagnostics were reviewed and interpreted by me:: lab results, radiology exam(s) and EKG tracing(s) Lab and/or radiology exams considered but not ordered:: None Interpretation Summary: RADIOLOGY Chest X-Ray: Patient: CHAYO HUERTA Med. Record#: [id number] Birthdate: 1990 Age/Sex: 34 / F Location: [facility] Attending Dr: Ordering Physician: Monica Almaraz MD Date of Service: 12/14/24 Procedure(s): XR chest 1V portable Accession Number(s): [id number] cc: Jose Enrique Fields MD; Monica Almaraz MD~ Examination: AP chest single view TECHNIQUE: AP portable upright chest single view Date and time: December 14, 2024 10:21 PM Comparison April 04, 2014 INDICATIONS: Chest pain and fever today FINDINGS: Normal heart size Lungs are clear. Osseous structures are intact IMPRESSION: No active disease Dictated By: Jose Enrique Fields MD Signed By: <Electronically signed by Jose Enrique Fields MD in OV> 12/14/[address]: Patient Name: CHAYO HUERTA : 1990 Accession No: [id number] Gender: F Location: ER Type Of Study: CT Head w/o contrast Physician: UNKNOWN UNKNOWN Image Count: [id number] Date of Exam: 12/15/2024 12:43 AM ET Requisition Time: 12/15/2024 04:18 AM ET Date of Report: 12/15/2024 05:02 AM ET Clinical History: sepsis Lead Security Officer: Agree / Disagree Change in Patient Care: Yes / No If a significant discrepancy is found between the preliminary and final interpretations of this study, please fax back this form to [phone] with a copy of the official report so that appropriate action may be taken. If you would like to discuss the findings with the radiologist, please call us on [phone], [phone]. CONFIDENTIALITY STATEMENT This transmission is confidential and is intended to be a privileged communication. It is intended only for the use of the addressee. Access to this message by anyone else is unauthorized. If you are not the intended recipient, any disclosure, distribution or any action taken, or omitted to be taken in reliance on it is prohibited and may be unlawful. If you received this communication in error, please notify us so that return of this document to us can be arranged. This report has been generated using [employer] ([email or web address]) Prelim Report CT scan of the head without intravenous contrast (axial sections with sagittal and coronal reformats). December 15, 2024 at 0043 hours Clinical history: Sepsis Comparison: No prior study is available for comparison. Findings: No evidence of intracranial hemorrhage, mass effect or midline shift. The ventricles and CSF spaces are unremarkable. The calvarium is unremarkable. The mastoid air cells and the visualized paranasal sinuses are clear. Impression: No evidence of intracranial hemorrhage, mass effect or midline shift. Abdomen/Pelvis CT: Patient Name: CHAYO HUERTA : 1990 Accession No: [id number] Gender: F Location: ER Type Of Study: CT Abdomen & Pelvis w/ Contrast Physician: UNKNOWN UNKNOWN Image Count: [id number] Date of Exam: 12/15/2024 12:46 AM ET Requisition Time: 12/15/2024 04:16 AM ET Date of Report: 12/15/2024 05:04 AM ET Clinical History: sepsis Lead Security Officer: Agree / Disagree Change in Patient Care: Yes / No If a significant discrepancy is found between the preliminary and final interpretations of this study, please fax back this form to [phone] with a copy of the official report so that appropriate action may be taken. If you would like to discuss the findings with the radiologist, please call us on [phone], [phone]. CONFIDENTIALITY STATEMENT This transmission is confidential and is intended to be a privileged communication. It is intended only for the use of the addressee. Access to this message by anyone else is unauthorized. If you are not the intended recipient, any disclosure, distribution or any action taken, or omitted to be taken in reliance on it is prohibited and may be unlawful. If you received this communication in error, please notify us so that return of this document to us can be arranged. This report has been generated using [employer] ([email or web address]) Prelim Report CT scan of the abdomen and pelvis with intravenous contrast (axial sections with sagittal and coronal reformats) December 15, 2024 0046 hours Clinical History: Sepsis Comparison: None available at the time of this report. Findings: The lung bases are clear. The gallbladder, pancreas, spleen, kidneys, and adrenals are unremarkable. Hepatomegaly. No evidence of bowel obstruction. The appendix is within normal limits. There is no mesenteric or retroperitoneal adenopathy. The urinary bladder is unremarkable. There is no free fluid or free air. The osseous structures are unremarkable. A large heterogeneous uterus. Air within the endometrial stripe. Heterogeneous thickened endometrium. Postsurgical changes in the anterior abdominal wall. Collection deep to the anterior abdominal wall soft tissues (axial image 177 of 251) measuring 1.1 x 5.6 cm. Impression: 1. Probable endometritis. 2. Collection deep to the anterior abdominal wall soft tissues (axial image 177 of 251), likely abscess. 3. Hepatomegaly. Medications / Prescriptions Medications or Prescriptions considered but not ordered:: None Medication administrations:: Medication Administration History Piperacillin/Tazobactam/Dextrose (Zosyn) 3.375 gm in 50 mls @ 100 mls/hr IV X1 ONE Stop: 12/15/24 05:43 Last Admin: 12/15/24 05:21 Dose: 100 mls/hr Documented By: BD Discontinued Medications Acetaminophen (Acetaminophen 500 Mg Tablet) 1,000 mg PO X1 ONE Stop: 12/14/24 22:11 Last Admin: 12/14/24 22:26 Dose: 1,000 mg Documented By: BD Hydrocodone Bitart/Acetaminophen (Hydrocodone/Apap 5/325 Tablet) 1 tab PO X1 ON E Stop: 12/15/24 01:39 Last Admin: 12/15/24 01:44 Dose: 1 tab Documented By: BD Sodium Chloride (Ns) 1,000 mls @ 999 mls/hr IV .Q1H1M ONE Stop: 12/14/24 23:03 Last Infusion: 12/14/24 23:04 Dose: Infused Documented By: Admin: 12/14/24 22:26 Dose: 999 mls/hr Documented By: BD Piperacillin/Tazobactam/Dextrose (Zosyn) 3.375 gm in 50 mls @ 100 mls/hr IV X1 ONE Stop: 12/14/24 22:36 Last Infusion: 12/14/24 22:57 Dose: Infused Documented By: Admin: 12/14/24 22:26 Dose: 100 mls/hr Documented By: BD See above if any. Consultations Consultation(s) initiated? (list below): Yes Consultation #1 (Physician, Specialty, Details): Discussed with Dr. Qureshi for admission. Reviewed the patient?s HPI, PMHx, lab and/or radiology results. Discussed treatment plan. Will consult an admission to the hospitalist. Time: 05:20 Diagnosis Fever Differential Diagnosis: cellulitis, fever of unknown origin, community acquired pneumonia, pyelonephritis, viral infection and sepsis Most likely diagnosis given after review of the tests above:: Endometritis, Abdominal abscess, Surgical complication Admission Indicated Admission indicated?: indicated Explain why admission is indicated or not indicated:: Endometritis, Abdominal abscess, Surgical complication Admission Request Was there a request for admission?: Yes Admission Attestation Admission request attestation: Discussed case with [] from Hospitalist service regarding admission. Discussed patients ED course, exam findings, labs, and radiology results. The Hospitalist [agrees,declines] to accept the patient for admission. Disposition Plan Disposition Plan: Admit Discharge Plan Prescriptions/Referrals Prescriptions/Med Rec: No Action acetaminophen-codeine 300-60 mg tablet 1 tab PO Q8H PRN (Reason: pain) Qty: 10 0RF ibuprofen 800 mg tablet 800 mg PO TID Qty: 30 0RF acetaminophen-codeine 300-15 mg tablet 1 tab PO Q12H PRN (Reason: pain) Qty: 14 0RF ibuprofen 800 mg tablet 800 mg PO Q8H PRN (Reason: pain) Qty: 30 0RF ferrous sulfate 325 mg (65 mg iron) tablet,delayed release (DR/EC) 325 mg PO QDAY 90 Days Qty: 90 2RF Referrals: Charbel Cheema MD [Primary Care Provider] - In 1 week Problem List Clinical Impression: Endometritis, Abdominal abscess, Surgical complication Patient/Caregiver Discharge Instructions Print Language: Sinhala
[2024-12-15] MEDS: PIPER/TAZO 3.375 GM PREMIX 3.375 GM/50 ML BAG IV ×3 (05:21→21:50)
--- NOTE | 2024-12-15 06:01 | PC.NURSE ---
CALLED PT HAS ZOSYN FOR 0600 PT JUST COMPLETED ONE DOES ADVISED NOT TO GIVE 0600 DOSE.
[2024-12-15] MEDS: DEXTROSE 5%-0.45% NS 1,000 ML 125 ML IV ×2 (06:09→15:02)
--- NOTE | 2024-12-15 06:25 | PD.GYNHP ---
Documentation for date of: 12/15/24 CERTIFIED SURGICAL TECHNICIAN - HPI History of Present Illness History of present illness: H and P dictated on STAT line #9 in [place] [id number] Meds Home Medications and Allergies Allergies Allergy/AdvReac Type Severity Reaction Status Date / Time fructose Allergy Severe GI UPSET Verified 12/14/24 21:50 lactose Allergy Severe GI UPSET Verified 12/14/24 21:50 lorazepam (From Ativan) Allergy Severe Hallucinati Verified 12/14/24 21:50 ng egg Allergy Cramping Verified 12/14/24 21:50 of the Muscles bupropion AdvReac Severe HALLUCINATI Verified 12/14/24 21:50 NG Exam - CERTIFIED SURGICAL TECHNICIAN Vital Signs Temp Pulse Resp BP Pulse Ox O2 Del Method 98.9 F 84 16 124/76 99 Room Air 12/15/24 06:00 12/15/24 06:00 12/15/24 06:00 12/15/24 06:00 12/15/24 06:00 12/15/24 06:00 CERTIFIED SURGICAL TECHNICIAN - Results Labs 12/14/24 22:13 12/14/24 22:13 Labs: Short CBC 12/14/24 Range/Units 22:13 WBC 7.9 D (3.6-11.0) Thou/mm3 Hgb 12.6 (12.0-16.0) g/dL Hct 35.4 L (36.0-46.0) % Plt Count 195 (140-440) Thou/mm3 BMP 12/14/24 22:13 Sodium 140 Potassium 3.6 Chloride 106 Carbon Dioxide 22.2 BUN 11 Creatinine 1.0 Glucose 123 H Calcium 10.2 Cardiac Enzymes 12/14/24 Range/Units 22:13 Troponin I < 0.002 (0.0-0.045) ng/mL Liver Function 12/14/24 Range/Units 22:13 Total Bilirubin 0.3 (0.3-1.2) mg/dL AST 14 (0-34) U/L ALT 25 (10-49) U/L Alkaline Phosphatase 384 H (46-116) U/L Albumin 3.9 (3.5-5.0) gm/dL Urine 12/14/24 Range/Units 22:36 Urine Color Lt-Yellow (Lt Yel-Yel) Urine Clarity Clear (Clear/Hazy) Urine pH 6.5 (5.0-7.0) Ur Specific [place] 1.012 (1.001-1.035) Urine Protein Negative (Neg - Trace) Urine Glucose (UA) Negative (Negative) Quality Measures Quality Measures none
[2024-12-15] MEDS: HYDROcodone/APAP 10/325 TAB PO ×3 (07:50→21:52)
[2024-12-15] MEDS: ONDANSETRON INJ 2 MG/ML INJ 2 ML 4 MG IVP (07:51)
[2024-12-16] VITALS (9 sets, daily range): BP systolic 107–119; BP diastolic 60–83; PULSE 76–104; RESP 16–97; TEMP 36.1–36.8; O2SAT 97–98
[2024-12-16] MEDS: DEXTROSE 5%-0.45% NS 1,000 ML 125 ML IV (01:11)
[2024-12-16] MEDS: PIPER/TAZO 3.375 GM PREMIX 3.375 GM/50 ML BAG IV ×3 (05:49→22:47)
[2024-12-16] MEDS: HYDROcodone/APAP 10/325 TAB PO ×3 (05:54→19:05)
[2024-12-16 06:22] LABS: Basophils % (Auto) 1 % (0-2.5); Eosinophils # (Auto) 0.3 Thou/mm3 (0.0-0.5); Eosinophils % (Auto) 5 % (0-10); Hematocrit 31.8 % (36.0-46.0); Hemoglobin 10.8 g/dL (12.0-16.0); Immature Granulocytes % (Auto) 1 % (0-0); Immature Granulocytes Auto 0.09 Thou/mm3 (0.00-0.00); Lymphocytes # (Auto) 2.5 Thou/mm3 (1.0-4.8); Lymphocytes % (Auto) 35 % (10-50); Mean Corpuscular Hemoglobin 30.9 pg (25.0-35.0); Mean Corpuscular Volume 91 fL (80-100); Monocytes # (Auto) 0.6 Thou/mm3 (0.0-0.8); Monocytes % (Auto) 9 % (0-12); Neutrophils # (Auto) 3.5 Thou/mm3 (1.8-7.7); Neutrophils % (Auto) 50 % (37-80); Nucleated Red Blood Cell % 0 /100 WBC (0); Platelet Count 172 Thou/mm3 (140-440); RDW Standard Deviation 47.9 fL (36.4-46.3); Red Blood Count 3.49 Miln/mm3 (4.00-5.20); White Blood Count 7.1 Thou/mm3 (3.6-11.0)
[2024-12-16 06:49] LABS: Partial Thromboplastin Time 26.4 Seconds (22.0-36.0); Prothrombin Time 10.7 Seconds (9.0-12.2)
[2024-12-16 06:59] LABS: Alanine Aminotransferase 21 U/L (10-49); Albumin, Serum 3.3 gm/dL (3.5-5.0); Albumin/Globulin Ratio 1.7 (1.2-2.2); Alkaline Phosphatase 280 U/L (46-116); Anion Gap 8 (7-16); Aspartate Amino Transferase 11 U/L (0-34); BUN/Creatinine Ratio 10 Ratio (12-20); Bilirubin,Total 0.2 mg/dL (0.3-1.2); Blood Urea Nitrogen 8 mg/dL (9-23); Calcium 9.4 mg/dL (8.3-10.6); Carbon Dioxide 26.8 mMol/L (20.0-31.0); Chloride 106 mMol/L (98-107); Creatinine (Component) 0.8 mg/dL (0.6-1.3); Estimated Creatinine Clearance 111.6 mL/min (>60); Glucose 93 mg/dL (74-106); Osmolality,Calculated 279 (275-295); Sodium 141 mMol/L (136-145); Total Protein 5.3 gm/dL (5.7-8.2); eGFR > 60 See Note
--- NOTE | 2024-12-16 07:19 | ESPR_ITS ---
RE: CHAYO HUERTA : 1990 DATE OF SERVICE: 12/16/2024 SUBJECTIVE: The patient feels much better. She is tolerating regular diet. She is voiding and ambulating. She is passing flatus. She denies any excessive vaginal bleeding. She denies any chest pain, palpitations, shortness of breath or lower extremity pain. She noticed a lump in her left breast that developed overnight and is mildly tender. OBJECTIVE: Vital Signs: Blood pressure 114/79, heart rate 76, respirations 18, and temperature is 97.1. Lungs: Clear to auscultation bilaterally. Heart: Regular rate and rhythm. Abdomen: Incision is clean and intact. Nondistended. Extremities: Nontender. ASSESSMENT: Postoperative day #5, status post delivery, endometritis, and abdominal wall fluid collection most likely hematoma ( 5 x 1 cm) doubt abscess. Left breast mass is likely a Clogged Milk Duct rule out abscess. PLAN: Continue IV antibiotics. Stop IV fluids. left breast ultrasound. Possible discharge home tomorrow. DT: 06:31:25 TT: 07:18:00 Ref: [id number] - TID: [id number] [facility]
--- NOTE | 2024-12-16 07:48 | XR_ITS ---
Examination: Breast ultrasound, unilateral, left complete Indications: Patient states tenderness in (the breast 3:00 position beginning today,, Date and time of exam: December 16, 2024 0922 hrs. Technique: Real-time davis scale ultrasonographic imaging performed left breast including all 4 quadrants as well as nipple retroareolar and axillary region. Findings: No cystic or solid mass Impression: BI-RADS Category 1: Negative study Repeat this study short-term as clinically warranted
--- NOTE | 2024-12-16 07:59 | ESDS_ITS ---
Planned Discharge Date 12/17/24 DS: Providers Provider Date of admission: 12/15/24 05:39 Primary care physician: Charbel Cheema MD Admitting Provider: Hector Qureshi MD Attending Provider on Admission: Hector Qureshi MD Attending Provider on DC: Hector Qureshi MD Discharging Provider: Hector Qureshi MD DS: Diagnosis Problem List Completed Was Problem List Reviewed/Reconciled?: Yes Hospital Course Hospital Course Hospital course: H and P dictated on STAT line #9 in [facility] [id number] 34-year-old who was admitted on December 14 for fever on postop day #3 after uncomplicated delivery by Dr. Cabrera. Imaging suggests endometritis with an abdominal wall fluid collection measuring 5 x 1 cm. She was placed on Zosyn and immediately became afebrile with normal white blood cell count. All cultures pending at the time of discharge. She complained of a little sudden onset of a left breast mass during her hospitalization so a left breast ultrasound was ordered. She will be discharged home after 48 hours of IV antibiotics on oral antibiotics for the next 5 days and follow-up with her primary OB within 7 days. Time Spent with Patient Time attestation: Total time spent providing and/or coordinating discharge services: Time spent: Less than 30 minutes Exam - INFORMATION SERVICES CONSULTANT Vital Signs Temp Pulse Resp BP Pulse Ox O2 Del Method 97.1 F 83 17 117/80 97 Room Air 12/16/24 07:32 12/16/24 07:32 12/16/24 07:32 12/16/24 07:32 12/16/24 07:32 12/16/24 07:32 Discharge Plan Plan Patient Disposition: HOME (Self Care) Disposition Comment: Stable Patient condition on transfer: Stable Prescriptions/Referrals Prescriptions/Med Rec: New metronidazole 500 mg tablet 500 mg PO BID Qty: 10 0RF amoxicillin-pot clavulanate 875-125 mg tablet 1 tab PO BID Qty: 10 0RF Continued acetaminophen-codeine 300-60 mg tablet 1 tab PO Q8H PRN (Reason: pain) Qty: 10 0RF acetaminophen-codeine 300-15 mg tablet 1 tab PO Q12H PRN (Reason: pain) Qty: 14 0RF ibuprofen 800 mg tablet 800 mg PO Q8H PRN (Reason: pain) Qty: 30 0RF Discontinued ibuprofen 800 mg tablet 800 mg PO TID Qty: 30 0RF Referrals: Charbel Cheema MD [Primary Care Provider] - Patient/Caregiver Discharge Instructions Discharge Activity: activity as tolerated Other Discharge Activity Instructions:: Follow up with Primary OB within 1 week. Other Discharge Diet Instructions: General Diet as tolerated Education Materials: After Delivery Concerns, Breast Care After , After a , : Caring for Yourself Print Language: Slovenian Activity Restrictions/Additional Instructions: No heavy lifting intercourse tampons douching x 6 weeks call with fevers heavy vaginal bleeding severe depression. Follow-up with your OB provider at [facility] later this week. Finish all antibiotics. Stand Alone Forms: Elaine Award Info., Patient Portal Info Letter Discharge Order Discharge Orders: Discharge (Routine); Ordered 12/17/24 Ordered By: Becky Qureshi ([facility])
--- NOTE | 2024-12-16 15:37 | PC.SS ---
Valentina Cobos is a 34-year-old female admitted to Med Surg for Endometritis. SS conducted bedside contact with the patient to complete initial assessment and to discuss discharge planning. Role and reason explained. Patient confirmed demographic information. Patient identifies Maverick Delarosa [phone] her surrogate decision maker. Pt states she is able to complete all ADL?s independently. No need for any source of DME. Pts PCP is Dr. Cheema [facility]. Pharmacy of choice is [facility]. Discharge options discussed and the pt wishes to return home.? Family will provide transportation upon DC. No further intervention required at this time, clinical social worker would be available to address any further concerns. DC Plan: Home Contact: latricia Temple Address: Confirmed on face sheet PCP: Deni
--- NOTE | 2024-12-16 19:36 | PC.NURSE ---
Nurse called MD Qureshi at 1930 regarding clarification on administering IV Fluids, Clarified that IV Fluids should be stopped and to stop the order. Nurse verified that the order for D5 1/2 NS @ 125 ml/hr should be stopped, agreed. Nurse also verified if it was okay for patient to take a shower, okayed.
[2024-12-16] MEDS: ACETAMINOPHEN 325 MG TABLET 650 MG PO (23:21)
[2024-12-17] VITALS: BP 127/80; PULSE 83; RESP 18; TEMP 36.3; O2SAT 99
[2024-12-17] MEDS: HYDROcodone/APAP 10/325 TAB PO ×3 (01:24→15:46)
[2024-12-17 04:00] VITALS: BP 120/76; PULSE 70; RESP 15; TEMP 36.3; O2SAT 98
[2024-12-17] MEDS: IBUPROFEN TAB 400 MG TABLET 800 MG PO (05:38)
[2024-12-17] MEDS: PIPER/TAZO 3.375 GM PREMIX 3.375 GM/50 ML BAG IV ×2 (05:38→13:25)
--- NOTE | 2024-12-17 07:50 | ESHP_ITS ---
RE: CHAYO HUERTA : 1990 DATE OF ADMISSION: 12/15/2024 HISTORY OF PRESENT ILLNESS: This is a 34-year-old 6, para 3-0-3-3 who is postop day #4 status post elective delivery who presents to the emergency room complaining of fever, headache, eye pain and not feeling well following her on 12/11/2024. She denies any nausea or vomiting. She denies any flank pain. She denies any photophobia or stiff neck. She denies any diarrhea. She denies any excessive vaginal bleeding. She has incisional pain, which she is managing with ibuprofen and Tylenol with codeine. She denies any chest pain, palpitations, shortness of breath, or lower extremity pain. ALLERGIES: FRUCTOSE, LACTOSE, LORAZEPAM, EGGS, AND BUPROPION. MEDICATIONS: 1. Ferrous sulfate 325 mg 1 p.o. daily. 2. Ibuprofen 800 mg 1 p.o. q.6 hours p.r.n. pain. 3. Acetaminophen with codeine 300/15 mg p.o. q.4 hours p.r.n. pain. PAST MEDICAL HISTORY: Syphilis treated in 2019, gonorrhea treated in 2020, pneumonia, seizure 13 years ago, bipolar disorder, depression, anxiety, posttraumatic stress disease, gastroesophageal reflux disease, recreational drug use, delivery, blood transfusion, iron deficiency anemia. SOCIAL HISTORY: Former smoker. Methamphetamine use. Marijuana use. PAST SURGICAL HISTORY: delivery 10/30/2023 and 12/11/2024. REVIEW OF SYSTEMS: She denies any chest pain, palpitations, cough, shortness of breath. PHYSICAL EXAMINATION: VITAL SIGNS: Blood pressure is 124/76, heart rate 84, respirations 16, temperature is 102.6 max and temperature now is 98.9. HEENT: Oropharynx and sclerae clear. Neck is supple. Head is atraumatic. LUNGS: Clear to auscultation bilaterally. HEART: Regular rate and rhythm. ABDOMEN: Incision clear and intact. Mild gaseous distention. EXTREMITIES: Nontender. SKIN: No gross rashes or lesions. NEUROLOGIC: No focal deficits. LABORATORY DATA: White blood cell count is 7.9, hemoglobin 12.6. Lactic acid is 2.9 repeat after 1 hour was 1.4. Procalcitonin and troponin are within normal limits. Urinalysis is negative. Blood culture pending. Urine culture pending. Chest x-ray is negative. CT scan of the head is negative. CT scan of the abdomen and pelvis shows hematoma or abscess in the anterior abdominal wall measuring 5.6 x 1.1 cm air within the endometrial stripe with a heterogeneous thickened stripe of the endometrium. No evidence of bowel obstruction. Normal appendix. Urinary bladder is unremarkable. ASSESSMENT AND PLAN: endometritis anterior abdominal wall abscess versus hematoma. Postop day #4 status post delivery. Plan is Zosyn 3.375 g q.8 hours, pain management, ibuprofen, acetaminophen or hydrocodone as needed. Encourage ambulation. Expect resolution of infection without needing incision and drainage of abdominal wall collection. PLAN: Hospitalization 48-72 hours. I discussed with the patient the nature of her condition and the recommended treatment plan. All questions answered. DT: 06:25:15 TT: 07:00:00 Ref: [id number] - TID: [id number]
[2024-12-17 08:00] VITALS: BP 110/63; PULSE 70; RESP 18; TEMP 36.1; O2SAT 100
[2024-12-17 12:00] VITALS: BP 113/78; PULSE 87; RESP 20; TEMP 36.1; O2SAT 96
[2024-12-17] MEDS: ACETAMINOPHEN 325 MG TABLET 650 MG PO (13:26)
[2024-12-17 16:00] VITALS: BP 112/73; PULSE 70; RESP 18; TEMP 36.1; O2SAT 99
--- NOTE | 2024-12-17 18:04 | PD.LDPPPRG ---
Subjective Subjective Interval history: Patient is postop day #6 status post repeat low-transverse section by Dr. Souza admitted by Dr Qureshi with a fever to 102.6 on 12/14/2024 and ultrasound revealed a 5 x 1 cm fluid collection possible abscess versus hematoma. Patient has been on IV Zosyn for 48 hours. She has been afebrile. She wants to go home. Tonight she is resting comfortably in bed she has been pumping her breastmilk she is tolerating a general diet. She wants to go home to see her daughter. No heavy bleeding pain is controlled with oral pain medications Dr Qureshi already prescribed Augmentin and Flagyl for home. Exam Vital Signs Temp Pulse Resp BP Pulse Ox O2 Del Method 96.9 F 70 18 112/73 99 Room Air 12/17/24 16:00 12/17/24 16:00 12/17/24 16:00 12/17/24 16:00 12/17/24 16:12/17/24 16:00 Narrative Exam Patient is alert and oriented x 3 in no apparent distress resting comfortably in bed abdomen is soft fundus is firm incision is clean dry and intact with some minor ecchymoses. No erythema. No induration. Extremities show no significant edema or erythema Objective Labs 12/16/24 05:21 12/16/24 05:21 Assessment & Plan Problem List (1) endometritis: Problem details: Afebrile 48 hours on Zosyn. Sent home on Augmentin and Flagyl. Status: Acute (2) Abdominal abscess: Problem details: Afebrile 48 hours on Zosyn. Sent home on Augmentin and Flagyl. Status: Acute (3) Term delivered: Problem details: Postop C-sections instructions reiterated. Status: Acute (4) delivery delivered: Problem details: No heavy lifting, intercourse, tampons, douching, bathtubs, swimming x 6 weeks. Status: Acute Plan Comment Plan Comment: Discharge home. Time Spent With Patient Time: Total time spent is greater than 50% in coordination of care (as documented) at patient's floor/unit and/or counseling patient: Time with patient: less than 15 minutes
--- NOTE | 2024-12-17 18:09 | PD.LDDS ---
DS: Providers Provider Date of admission: 12/15/24 05:39 Primary care physician: Charbel Cheema MD Admitting Provider: Hector Qureshi MD Attending Provider on Admission: Hector Qureshi MD Attending Provider on DC: Becky Qureshi MD ([facility]) Discharging Provider: Becky Qureshi MD ([facility]) Anticipated date of discharge: 12/17/24 DS: Diagnosis Discharge Diagnosis (1) endometritis: Status: Acute Assessment & Plan: Home on Flagyl and Augmentin. Afebrile 48 hours on Zosyn. (2) Abdominal abscess: Status: Acute Assessment & Plan: Home on Flagyl and Augmentin. Afebrile 48 hours on Zosyn. (3) delivery delivered: Status: Acute Assessment & Plan: Detail discharge instructions given Problem List Completed Was Problem List Reviewed/Reconciled?: Yes Summary/Hosp Course Brief History: H and P dictated on STAT line #9 in [facility] [id number] 34-year-old who was admitted on December 14 for fever on postop day #3 after uncomplicated scheduled repeat delivery by Dr. Cabrera on 12/11/2024. Imaging suggests endometritis with an abdominal wall fluid collection measuring 5 x 1 cm. She was placed on Zosyn for 48 hours and became afebrile with a normal white blood cell count. She complained of a little sudden onset of a left breast mass during her hospitalization so a left breast ultrasound was ordered. She will be discharged home after 48 hours of IV antibiotics on oral antibiotics for the next 5 days and follow-up with her primary OB within 7 days. Peripartum Data Delivery Method: Low Transverse (On 12/11/[address] Souza. Originally discharged 12/13/2024 in stable condition) complications: pelvic infection (Suspected endometritis with hematoma versus early abscess) Status at Discharge Functional status at discharge: independent ambulation Overall status at discharge: patient is progressing back to baseline Time Spent with Patient Time attestation: Total time spent providing and/or coordinating discharge services: Time spent: Less than 30 minutes Specific discharge activities: No heavy lifting intercourse tampons or douching x 6 weeks call with temperatures 100.4 degrees or higher. Follow-up with [facility] later this week for a postop check. Finish all antibiotics that were prescribed. Exam Vital Signs Temp Pulse Resp BP Pulse Ox O2 Del Method 96.9 F 70 18 112/73 99 Room Air 12/17/24 16:00 12/17/24 16:00 12/17/24 16:00 12/17/24 16:00 12/17/24 16:00 12/17/24 16:00 Narrative Exam Fundus firm nontender incision clean dry and intact extremities show no cyanosis clubbing or edema Discharge Plan Plan Patient Disposition: HOME (Self Care) Disposition Comment: Stable Patient condition on transfer: Stable Prescriptions/Referrals Prescriptions/Med Rec: New metronidazole 500 mg tablet 500 mg PO BID Qty: 10 0RF amoxicillin-pot clavulanate 875-125 mg tablet 1 tab PO BID Qty: 10 0RF Continued acetaminophen-codeine 300-60 mg tablet 1 tab PO Q8H PRN (Reason: pain) Qty: 10 0RF acetaminophen-codeine 300-15 mg tablet 1 tab PO Q12H PRN (Reason: pain) Qty: 14 0RF ibuprofen 800 mg tablet 800 mg PO Q8H PRN (Reason: pain) Qty: 30 0RF Discontinued ibuprofen 800 mg tablet 800 mg PO TID Qty: 30 0RF Referrals: Charbel Cheema MD [Primary Care Provider] - Patient/Caregiver Discharge Instructions Discharge Activity: activity as tolerated Other Discharge Activity Instructions:: Follow up with Primary OB within 1 week. Other Discharge Diet Instructions: General Diet as tolerated Education Materials: After Delivery [place] Concerns, Breast Care After , After a , : Caring for Yourself Print Language: Georgian Activity Restrictions/Additional Instructions: No heavy lifting intercourse tampons douching x 6 weeks call with fevers heavy vaginal bleeding severe depression. Follow-up with your OB provider at [facility] later this week. Finish all antibiotics. Stand Alone Forms: Elaine Award Info., Patient Portal Info Letter Discharge Order Discharge Orders: Discharge (Routine); Ordered 12/17/24 Ordered By: Becky Qureshi ([facility]) Planned Discharge Date 12/17/24
[2024-12-17 18:40] VITALS: BP 111/62; PULSE 85; RESP 18; TEMP 37; O2SAT 98
--- NOTE | 2024-12-17 18:41 | PC.NURSE ---
pt alert and oriented gcs 15. no signs of distress noted. pt communicated with ob doctor dr. langford
== END 2024-12-17 19:23 | disposition home or self-care (01) | DRG 561 ==
LOC: SERX 12-15 00:04 → SERHOLD 12-15 06:22 → S3NX 12-15 14:36
PROVIDERS: Admitting Provider Specialist; Emergency Provider Emergency Medicine; PCP Family Medicine; Visit Provider Specialist
DX: O86.12 Endometritis following delivery (principal); F31.9 Bipolar disorder, unspecified; F41.9 Anxiety disorder, unspecified; K21.9 Gastro-esophageal reflux disease without esophagitis; N63.20 Unspecified lump in the left breast, unspecified quadrant; Z87.891 Personal history of nicotine dependence; L02.211 Cutaneous abscess of abdominal wall; Z98.891 History of uterine scar from previous surgery; Z79.899 Other long term (current) drug therapy
CPT/HCPCS: 36415; 70450; 71045; 74177; 76641; 80053; 81001; 81025; 83605; 83690; 83735; 83880; 84145; 84484; 85025; 85610; 85730; 87040; 87086; 87811; 93005; 96365; 96367; 96375; 99285; A4649; J2405; J2543; J7030; J7042; Q9967; A9270